=== PATIENT | female | born 1955 | race Caucasian/White ===

== ENCOUNTER 2019-08-20 23:08 | Inpatient (IN) | payer MEDICARE ==
[~2019-08-20] VITALS: Ht 162.6 cm; Wt 109.5 kg
[2019-08-20] MEDS ORDERED: SODIUM CHLORIDE 0.9% 1,000 ML IV ONE (23:23)
[2019-08-20] MEDS ORDERED: KETOROLAC TROMETH 30 MG/ML 1ML VIAL IV ONE (23:30)
[2019-08-20] MEDS ORDERED: VANCOMYCIN 1GM/250ML 250 ML IV ONE (23:30)
[2019-08-21] LABS: Basophils # (auto) 0.1 10 ^3/uL (0-0.2); Eosinophils # (auto) 0.3 10 ^3/uL (0-0.8); Eosinophils % (auto) 3.7 % (0.0-7.0); Hematocrit 41.7 % (36.0-46.0); Hemoglobin 13.7 g/dL (12.2-16.2); Lymphocytes # (auto) 1.7 10 ^3/uL (0.4-5.4); Lymphocytes % (auto) 18.4 % (10.0-50.0); Mean Corpuscular Hemoglobin 27.1 pg (28.0-32.0); Mean Corpuscular Hgb Conc. 32.8 g/dL (32.0-36.0); Mean Corpuscular Volume 82.7 fL (80.0-100.0); Monocytes # (auto) 0.9 10 ^3/uL (0-1.3); Neutrophils # (auto) 6.1 10 ^3/uL (1.6-8.6); Neutrophils % (auto) 66.9 % (37.0-80.0); Nucleated Red Blood Cells % 0.1 %; Platelet Count (auto) 366 10^3/uL (140-450); Red Blood Cells 5.04 10^6/uL (4.0-5.20); Red Cell Distribution Width 15.8 % (11.8-14.3); White Blood Cell 9.1 10^3/uL (4.4-10.8)
[2019-08-21 00:16] LABS: INR 0.99 (0.9-1.15); Partial Thromboplastin Time 28.5 sec (23.64-32.05)
[2019-08-21 00:22] LABS: Calcium 8.7 mg/dL (8.5-10.1); Potassium 3.5 mmol/L (3.5-5.1)
[2019-08-21 00:25] LABS: Bilirubin, Total 0.3 mg/dL (0.2-1.0); Total Protein 7.9 g/dL (6.4-8.2)
[2019-08-21 01:06] LABS: CRP High Sensitivity 7.04 mg/dL (< 0.3)
[2019-08-21 01:35] LABS: Urine Bacteria NONE SEEN /hpf (None Seen); Urine Blood Negative /uL (Negative); Urine WBC <1 /hpf (0 - 5)
[2019-08-21] MEDS ORDERED: hydrALAZINE HCL 20 MG/ML VL IV ONE (01:45)
[2019-08-21] MEDS ORDERED: dilTIAZem HCL 60 MG TAB PO ONE (06:30)
[2019-08-21] MEDS ORDERED: ENALAPRILAT 1.25 MG/ML-1ML VIAL IV ONE (06:45)
[2019-08-21] MEDS ORDERED: ONDANSETRON HCL 4 MG/2 ML VIAL IV PRN (06:45)
[2019-08-21] MEDS ORDERED: TEMAZEPAM 15 MG CAP PO PRN (06:45)
[2019-08-21] MEDS ORDERED: HYDROcodone-ACET 5/325MG TAB ONE (07:27)
[2019-08-21] MEDS: HYDROcodone-ACET 5/325MG TAB PO PRN (07:40)
--- NOTE | 2019-08-21 09:12 | NUR ---
MED/SURG admit from ER [facility] admitted to MED/SURG unit no SBAR received. Patient oriented to Ashley Guerrero RN primary RN, unit, room, bed, and unit policies regarding patient care and visiting hours. Patient placed on bedside oxygen, weighed by bedscale and encouraged to call if they need something. All questions and concerns addressed, patient verbalized understanding.
[2019-08-21] MEDS: FAMOTIDINE 20 MG TAB PO SCH ×2 (09:43→21:39)
[2019-08-21] MEDS: ENOXAPARIN SOD 40 MG/0.4 ML SYRINGE SC SCH (09:44)
[2019-08-21] MEDS: METOPROLOL TARTRATE 25 MG TAB PO SCH ×2 (09:44→21:39)
[2019-08-21] MEDS: cefTRIAXone 1GM/50ML D5W 50 ML IV SCH (09:45)
[2019-08-21 10:05] VITALS: BP 134/55
[2019-08-21 10:58] VITALS: BP 134/55
[2019-08-21] MEDS ORDERED: PNEUMOCOCCAL VACC POLYS 25 MCG/0.5 ML VIAL IM ONE (11:30)
--- NOTE | 2019-08-21 12:20 | NUR ---
WOUND CARE NOTE: Wound care in to see patient per wound care request regarding "bilateral lower extremity wounds" that are noted present on admission. Bedside nurse took photograph of patient's wounds upon admission for reference. Patient is 64 years old female with admitting diagnosis of Lower Extremity Cellulitis. Patient is resting in bed in Rm. 294B. Patient is awake, alert and oriented. She's in no stated pain at this time however reported that her bilateral lower leg are painful to touch. Patient is self turning and repositioning. Her current Kameron score is 14 . Noted patient's bilateral lower leg has edema and erythema with multi open weeping blisters more prominently to calf area. Patient reported that she has had the BLE problem since 2018, "start as blisters, will spread and cleared out". Cleansed patient's BLE wounds with wound cleanser,patted dry with gauze,applied Thera Honey gauze to open blisters, covered with Opti lock dressing, and secured with stockinette. Patient tolerated examination well and denies any other wound. RECOMMENDATION: Nursing to continue with EOD/PRN dressing change to BLE wounds per MD order, dietary consult for wounds, redistribute pressure points with wedges/pillows, elevate edematous extremity on pillows, continue monitoring by wound care while patient is hospitalized. Addendum: 08/21/19 at 1602 by Lashawn Webb RN Amended: Links added.
[2019-08-21 13:00] VITALS: BP_SYST 123; BP_SYST 150; BP_DIAS 78; BP_DIAS 82
[2019-08-21] MEDS: CLINDAMYCIN 600MG IV 50 ML IV SCH ×2 (15:02→21:37)
--- NOTE | 2019-08-21 15:06 | NUR ---
Discharge instructions given as ordered. Encourage to follow up with PMD as instructed. All questions and concerns addressed. Patient verbalized understanding. Medication reconciliation form completed and copy given to patient. IV removed with catheter intact, pressure dressing applied. Telemetry unit returned to ICU. Patient ambulated to [facility] with all personal belongings, accompanied by staff. No distress noted at time of departure. Addendum: 08/21/19 at 1507 by Ashley Guerrero RN RN wrong patient
--- NOTE | 2019-08-21 15:49 | NUR ---
PAGED DR. SPARROW FOR PATIENT'S BLOOD PRESSURE OF 171/78 mmHg. AWAITING CALL BACK
[2019-08-21] MEDS ORDERED: METOPROLOL TARTRATE 1MG/1ML-5ML VIAL IV PRN (16:00)
[2019-08-21] MEDS ORDERED: FUROSEMIDE 40 MG/4 ML VIAL IV ONE (16:00)
--- NOTE | 2019-08-21 16:02 | NUR ---
MD BARBOSA CALLED BACK. INFORMED MD OF PATIENT'S BLOOD PRESSURE AND HEART RATE. MD IS AWARE AND WILL PUT IN ORDERS FOR LASIX, HYDRALAZINE AND METOPROLOL. WILL FOLLOW THROUGH WITH ORDERS.
[2019-08-21 16:40] VITALS: BP 171/78
[2019-08-21] MEDS: ACETAMINOPHEN 325 MG TAB PO PRN (17:10)
--- NOTE | 2019-08-21 17:16 | NUR ---
REASSESSED PATIENT'S BLOOD PRESSURE IT IS 152/79 mmHg AND HEART RATE IS 84 BPM. WILL ADMINISTER LOPRESSOR ORDERED.
--- NOTE | 2019-08-21 19:15 | NUR ---
CLOSING SHIFT NOTE ENDORSED CARE TO GROUP WORK PROGRAM AIDE RN CATRACHITO. PATIENT HAS NO S/S OF DISTRESS/SOB OR PAIN AT THIS TIME.
[2019-08-21 22:00] VITALS: BP 157/97
[2019-08-22 05:00] VITALS: BP_SYST 127; BP_SYST 189; BP_DIAS 77; BP_DIAS 94
[2019-08-22] MEDS: CLINDAMYCIN 600MG IV 50 ML IV SCH ×3 (05:48→22:31)
[2019-08-22] MEDS: hydrALAZINE HCL 20 MG/ML VL IV PRN ×2 (05:49→14:14)
[2019-08-22 06:25] LABS: Basophils # (auto) 0.1 10 ^3/uL (0-0.2); Basophils % (auto) 0.5 % (0.0-2.0); Eosinophils # (auto) 0.2 10 ^3/uL (0-0.8); Eosinophils % (auto) 2.1 % (0.0-7.0); Hematocrit 39.9 % (36.0-46.0); Hemoglobin 13.2 g/dL (12.2-16.2); Lymphocytes # (auto) 1.5 10 ^3/uL (0.4-5.4); Lymphocytes % (auto) 13.5 % (10.0-50.0); Mean Corpuscular Hemoglobin 27.6 pg (28.0-32.0); Mean Corpuscular Hgb Conc. 33.1 g/dL (32.0-36.0); Mean Corpuscular Volume 83.4 fL (80.0-100.0); Monocytes # (auto) 1.3 10 ^3/uL (0-1.3); Monocytes % (auto) 11.9 % (0.0-12.0); Neutrophils # (auto) 7.9 10 ^3/uL (1.6-8.6); Nucleated Red Blood Cells % 0.2 %; Platelet Count (auto) 346 10^3/uL (140-450); Red Blood Cells 4.79 10^6/uL (4.0-5.20); Red Cell Distribution Width 15.6 % (11.8-14.3); White Blood Cell 10.9 10^3/uL (4.4-10.8)
[2019-08-22 06:56] LABS: Potassium 3.3 mmol/L (3.5-5.1)
[2019-08-22 07:14] LABS: BUN/Creatinine Ratio 16.8; Calcium 8.5 mg/dL (8.5-10.1)
[2019-08-22] MEDS: ACETAMINOPHEN 325 MG TAB PO PRN ×2 (07:24→14:36)
--- NOTE | 2019-08-22 07:30 | NUR ---
OPENING NOTE Assumed care of patient at 0700. Respiratory sounds clear, equal bilaterally and unlabored. Patient verbalized a mild pain and verbalized that this is a tolerable pain level for her. Updated patient on POC. Assisted patient with ADLs. Bed locked in lowest position, side rails up x 2, HOB elevated at least 30 degrees and call light is within reach.
[2019-08-22 09:00] VITALS: BP 194/108
--- NOTE | 2019-08-22 09:27 | NUR ---
PATIENT STATES SHE IS HAVING 7/10 CHEST TIGHTNESS THAT IS NON RADIATING. PATIENT IS DIAPHORETIC AT THIS TIME. BLOOD PRESSURE IS 189/78 mmHg HEART RATE IS 85 BPM, AND SPO2 IS 95% ON 1L NC. EKG DONE.
[2019-08-22] MEDS: FAMOTIDINE 20 MG TAB PO SCH ×2 (09:28→22:32)
[2019-08-22] MEDS: cefTRIAXone 1GM/50ML D5W 50 ML IV SCH (09:28)
[2019-08-22] MEDS: METOPROLOL TARTRATE 25 MG TAB PO SCH ×2 (09:29→22:31)
[2019-08-22] MEDS: ENOXAPARIN SOD 40 MG/0.4 ML SYRINGE SC SCH (09:29)
--- NOTE | 2019-08-22 09:35 | NUR ---
SHOWED EKG TO DR. TRACY AND INFORMED HIM OF PATIENT'S CHEST TIGHTNESS AND SYMPTOMS. PER MD, SHOW LEARNING SUPPORT SPECIALIST MELÉNDEZ EKG STRIP AND PUT IN ORDERS FOR CARDIOLOGY CONSULT. WILL FOLLOW THROUGH WITH ORDERS.
--- NOTE | 2019-08-22 09:40 | NUR ---
EKG READ BY MIRANDA MELÉNDEZ. PER TAX FORM PREPARER, EKG IS NORMAL, SHE WILL SEE PATIENT IN A LITTLE BIT. NO NEW ORDERS GIVEN.
--- NOTE | 2019-08-22 09:40 | NUR ---
TAIL EDGER MEDHAT AT BEDSIDE UPDATED TAIL EDGER ON PATIENT'S STATUS INCLUDING ONE EPISODE OF CHEST TIGHTNESS AND ELEVATED BP, TAIL EDGER IS AWARE. TAIL EDGER WILL PUT IN NEW ORDERS FOR ECHO AND STRESS TEST. WILL FOLLOW THROUGH WITH ORDERS.
[2019-08-22] MEDS ORDERED: POTASSIUM CHL 20 Meq TABLET PO ONE (10:00)
--- NOTE | 2019-08-22 10:48 | NUR ---
Assessment Gummed Tape Press Operator spoke with pt per initial consult. Pt is a 64 yr old female admitted for lower extremity cellulitis. She has a hx of cad, htn. Pt was a/a/ox4, receptive to ss visit. Pt states she was independent with adl's prior to admission but admits she needs some help at home. She does not have dme. Pt's son Jose, Jose's spouse, and pt's 2 adult grand daughters live in [place] and are available to assist pt at home as needed. They sometimes stay with pt. Pt's spouse Rich is her emergency contact but he is working halfway in [place]. Pt does not have an ahcd, she declined ahcd info at this time. Pt's pcp is Dr. Givens. Plan is for pt to dc home with home health for wound care and PT. to continue to monitor pt for dc needs. Addendum: 08/22/19 at 1053 by JASON CHATTERJEE Amended: Links added.
[2019-08-22] MEDS ORDERED: ADENOSINE 93 MG in GIVE UN-DILUTED 0 ML IV STA (11:25)
--- NOTE | 2019-08-22 11:45 | NUR ---
MD GAINES AT BEDSIDE. UPDATED MD ON PATIENT'S STATUS INCLUDING CHEST TIGHTNESS IN THE MORNING, MD IS AWARE. PER MD, FOLLOW POC PROVIDED BY CARDIOLOGY. WILL FOLLOW THROUGH WITH ORDERS.
[2019-08-22] MEDS: LISINOPRIL 20 MG TAB PO SCH (12:07)
[2019-08-22 13:00] VITALS: BP 179/73
--- NOTE | 2019-08-22 13:01 | NUR ---
PATIENT TAKEN DOWN FOR STRESS TEST
--- NOTE | 2019-08-22 13:40 | NUR ---
Consult Consider adding MVI and Vitamin C 500 mg BID Est energy needs 2481-1575 kcal (14-18 kcal/kg BW 110.3kg) est protein needs 55-82g (1-1.5g/kg BW 54.5kg) Will reassess prn. Addendum: 08/22/19 at [address] Amended: Links added.
--- NOTE | 2019-08-22 13:52 | NUR ---
PATIENT RETURNED TO ROOM FROM STRESS TEST
[2019-08-22] MEDS ORDERED: ASPirin 81 mg TAB PO ONE (14:45)
[2019-08-22] MEDS ORDERED: CLOPIDOGREL BISULFATE 75 MG TAB PO ONE (14:45)
[2019-08-22] MEDS ORDERED: cloNIDine HCL 0.1 MG TAB PO PRN (14:45)
[2019-08-22 17:00] VITALS: BP 159/86
[2019-08-22] MEDS: FUROSEMIDE 20 MG/2 ML VIAL IV SCH (17:18)
--- NOTE | 2019-08-22 19:00 | NUR ---
CLOSING SHIFT NOTE ENDORSED CARE TO LIFE SKILLS COORDINATOR VOLUNTEER RN CATRACHITO. PATIENT HAS NO S/S OF DISTRESS/SOB OR PAIN AT THIS TIME.
[2019-08-22] MEDS: HYDROcodone-ACET 5/325MG TAB PO PRN (20:04)
[2019-08-22 22:00] VITALS: BP 150/79
[2019-08-23 05:00] VITALS: BP 163/83
[2019-08-23 05:25] LABS: Basophils # (auto) 0.1 10 ^3/uL (0-0.2); Basophils % (auto) 0.7 % (0.0-2.0); Eosinophils # (auto) 0.3 10 ^3/uL (0-0.8); Hematocrit 37.6 % (36.0-46.0); Hemoglobin 12.3 g/dL (12.2-16.2); Lymphocytes # (auto) 1.2 10 ^3/uL (0.4-5.4); Lymphocytes % (auto) 14.6 % (10.0-50.0); Mean Corpuscular Hgb Conc. 32.7 g/dL (32.0-36.0); Mean Corpuscular Volume 82.5 fL (80.0-100.0); Monocytes # (auto) 0.8 10 ^3/uL (0-1.3); Neutrophils # (auto) 6.1 10 ^3/uL (1.6-8.6); Neutrophils % (auto) 71.7 % (37.0-80.0); Nucleated Red Blood Cells % 0.1 %; Platelet Count (auto) 352 10^3/uL (140-450); Red Blood Cells 4.56 10^6/uL (4.0-5.20); White Blood Cell 8.5 10^3/uL (4.4-10.8)
[2019-08-23 05:50] LABS: Calcium 8.5 mg/dL (8.5-10.1); Potassium 3.7 mmol/L (3.5-5.1)
[2019-08-23 05:52] LABS: BUN/Creatinine Ratio 19.1
[2019-08-23] MEDS: CLINDAMYCIN 600MG IV 50 ML IV SCH ×3 (06:15→23:18)
[2019-08-23] MEDS: FUROSEMIDE 20 MG/2 ML VIAL IV SCH ×2 (06:16→18:32)
[2019-08-23] MEDS: hydrALAZINE HCL 20 MG/ML VL IV PRN (06:16)
[2019-08-23 06:23] LABS: INR 1.05 (0.9-1.15); Partial Thromboplastin Time 29.8 sec (23.64-32.05)
[2019-08-23] MEDS: ENOXAPARIN SOD 40 MG/0.4 ML SYRINGE SC SCH (07:44)
[2019-08-23 09:00] VITALS: BP 160/79
--- NOTE | 2019-08-23 09:00 | NUR ---
Attempted to call pt's son Joe at [phone] to inform him that pt will be taken to slab conditioner supervisor as per his request, no answer and unable to leave a message due to his mail box full.
--- NOTE | 2019-08-23 09:15 | NUR ---
Pt taken to calibration laboratory technician.
[2019-08-23] MEDS ORDERED: IODIXANOL 320MG/ML 100ML BTL IV ONE (09:48)
[2019-08-23] MEDS ORDERED: LIDOCAINE 2%HCL (LOCAL ANESTH.) INJ 20ML MDV ONE (09:48)
[2019-08-23] MEDS ORDERED: VERAPAMIL 2.5MG/ML INJ 2ML VIAL IV ONE (09:50)
[2019-08-23] MEDS ORDERED: ANGIOMAX 250 MG VIAL IV ONE (09:50)
[2019-08-23] MEDS ORDERED: fentaNYL CITRATE 100 MCG/2 ML VL ONE (09:51)
[2019-08-23] MEDS ORDERED: SODIUM CHL 0.9% 50 ML ONE (09:51)
[2019-08-23] MEDS ORDERED: MIDAZOLAM HCL 1MG/1ML-2 ML VIAL ONE (09:51)
[2019-08-23] MEDS: FAMOTIDINE 20 MG TAB PO SCH ×2 (10:00→23:18)
[2019-08-23] MEDS: METOPROLOL TARTRATE 25 MG TAB PO SCH ×2 (10:00→23:37)
[2019-08-23] MEDS: CLOPIDOGREL BISULFATE 75 MG TAB PO SCH (10:00)
[2019-08-23] MEDS: ASPirin 81 mg TAB PO SCH (10:00)
[2019-08-23] MEDS: LISINOPRIL 20 MG TAB PO SCH (10:00)
[2019-08-23] MEDS ORDERED: HEPARIN SODIUM (PORCINE) 5000 UNITS/ML 1ML VIAL ONE (10:06)
[2019-08-23] MEDS ORDERED: hydrALAZINE HCL 20 MG/ML VL ONE (10:37)
[2019-08-23] MEDS ORDERED: ASPirin 81 mg TAB ONE (10:46)
[2019-08-23] MEDS ORDERED: CLOPIDOGREL BISULFATE 75 MG TAB ONE (10:46)
[2019-08-23] MEDS ORDERED: cloNIDine HCL 0.1 MG TAB PO ONE (11:15)
[2019-08-23] MEDS ORDERED: hydrALAZINE HCL 20 MG/ML VL IV ONE (11:15)
--- NOTE | 2019-08-23 11:45 | NUR ---
Pt back from labels molder, rt wrist band, no bleeding noticed to rt wrist, cap refill < 3 sec, pt sleeping, will start removing air from TR band at 1155.
--- NOTE | 2019-08-23 11:55 | NUR ---
Removed 2 ml of air from rt wrist band, no bleeding noticed, will continue to monitor pt.
--- NOTE | 2019-08-23 12:00 | NUR ---
Attempted to call pt's son Joe at [phone] to inform him that pt is back from cath lab nurse. No answer and unable to leave a message due to his mail box full.
--- NOTE | 2019-08-23 12:25 | NUR ---
Removed 2 ml of air from rt wrist band, no bleeding noticed, will continue to monitor pt.
[2019-08-23] MEDS: cefTRIAXone 1GM/50ML D5W 50 ML IV SCH (12:30)
--- NOTE | 2019-08-23 12:55 | NUR ---
Removed 2 ml air from the vascular band to rt wrist, noticed bleeding, insert the 2 ml of air back in, will monitor pt for 30 min.
[2019-08-23 13:00] VITALS: BP 139/80
--- NOTE | 2019-08-23 13:25 | NUR ---
Removed 2 ml of air from rt vascular band, no bleeding noticed, will continue to monitor pt.
--- NOTE | 2019-08-23 13:55 | NUR ---
Removed 2 ml of air from vascular band, no bleeding noticed, will continue to monitor pt.
--- NOTE | 2019-08-23 14:25 | NUR ---
Removed the last 2 ml of air from vascular band, will monitor pt for bleeding.
--- NOTE | 2019-08-23 14:55 | NUR ---
Removed vascular band, no bleeding noticed, applied a sterile gauze and covered with clear opsite dressing. Will continue to monitor pt.
[2019-08-23 17:00] VITALS: BP 156/81
[2019-08-23] MEDS: HYDROcodone-ACET 5/325MG TAB PO PRN (18:33)
--- NOTE | 2019-08-23 19:10 | NUR ---
Called and spoke to Dr. Zarco / hospitalist to request an antiacid medication as per pt's request, pt requested medication to help her burp.
--- NOTE | 2019-08-23 19:40 | NUR ---
Opening Shift Note Assumed care of patient, awake and alert, oriented x 4, follows direction. On room air with even and unlabored respirations. No S/S of distress/SOB. Patient turns independently in bed and uses BSC. Bed in lowest locked position with side rails up x 2 and call light within reach. Instructed on POC and to call for assist PRN, will continue to monitor for changes Q1hr and PRN.
[2019-08-23] MEDS ORDERED: FAMOTIDINE 20 MG TAB PO ONE (19:45)
[2019-08-24 06:20] VITALS: BP 181/80
--- NOTE | 2019-08-24 06:50 | NUR ---
IV insertion IV access obtained, via clean sterile technique by inserting 22 gauge catheter at right hand after 1 attempt(s). IV secured properly. No trauma to site. Patient tolerated well. NOTE: IV to right forearm puffy.
[2019-08-24] MEDS: CLINDAMYCIN 600MG IV 50 ML IV SCH ×3 (07:06→22:00)
[2019-08-24] MEDS: cloNIDine HCL 0.1 MG TAB PO PRN (07:09)
[2019-08-24] MEDS: FUROSEMIDE 20 MG/2 ML VIAL IV SCH ×2 (07:09→17:17)
--- NOTE | 2019-08-24 07:10 | NUR ---
Closing note patient resting in bed with even and unlabored respirations, no s/s of distress. Endorsed care to day shift RN
--- NOTE | 2019-08-24 07:45 | NUR ---
Opening Shift Note Assumed care of patient, awake, alert, and oriented. No S/S of distress/SOB or pain. Bed in lowest/locked position, bed rails up x2, call light within reach. Instructed on POC and to call for assist PRN. Will continue to monitor for changes Q1hr and PRN.
[2019-08-24] MEDS: cefTRIAXone 1GM/50ML D5W 50 ML IV SCH (08:58)
[2019-08-24] MEDS: ASPirin 81 mg TAB PO SCH (08:59)
[2019-08-24] MEDS: ENOXAPARIN SOD 40 MG/0.4 ML SYRINGE SC SCH (08:59)
[2019-08-24] MEDS: hydrALAZINE HCL 20 MG/ML VL IV PRN (08:59)
[2019-08-24] MEDS: FAMOTIDINE 20 MG TAB PO SCH ×2 (08:59→21:32)
[2019-08-24 09:00] VITALS: BP 174/81
[2019-08-24] MEDS: METOPROLOL TARTRATE 25 MG TAB PO SCH ×2 (09:00→21:32)
[2019-08-24] MEDS: CLOPIDOGREL BISULFATE 75 MG TAB PO SCH (09:00)
[2019-08-24] MEDS: LISINOPRIL 20 MG TAB PO SCH (09:01)
--- NOTE | 2019-08-24 10:25 | NUR ---
MD ROUNDS DR Mariel GAINES AT BEDSIDE DISCUSSING POC WITH PATIENT. NO NEW ORDERS RECEIVED. WILL CONTINUE TO MONITOR
[2019-08-24 13:00] VITALS: BP 144/73
[2019-08-24 17:05] VITALS: BP 142/60
[2019-08-24] MEDS: HYDROcodone-ACET 5/325MG TAB PO PRN (18:46)
[2019-08-24 22:00] VITALS: BP 150/69
[2019-08-25 05:00] VITALS: BP 154/73
[2019-08-25] MEDS: ACETAMINOPHEN 325 MG TAB PO PRN (05:49)
[2019-08-25] MEDS: ENOXAPARIN SOD 40 MG/0.4 ML SYRINGE SC SCH (07:42)
[2019-08-25] MEDS: CLOPIDOGREL BISULFATE 75 MG TAB PO SCH (07:43)
[2019-08-25] MEDS: cefTRIAXone 1GM/50ML D5W 50 ML IV SCH (07:43)
[2019-08-25] MEDS: ASPirin 81 mg TAB PO SCH (07:43)
[2019-08-25] MEDS: FAMOTIDINE 20 MG TAB PO SCH (07:43)
[2019-08-25] MEDS: cloNIDine HCL 0.1 MG TAB PO PRN (07:44)
[2019-08-25] MEDS: METOPROLOL TARTRATE 25 MG TAB PO SCH (07:44)
[2019-08-25] MEDS: LISINOPRIL 20 MG TAB PO SCH (07:45)
--- NOTE | 2019-08-25 08:02 | NUR ---
IV insertion IV access obtained, via clean sterile technique by inserting 22 gauge catheter at left hand after 1 attempt. IV secured properly. No trauma to site. Patient tolerated well.
[2019-08-25 09:00] VITALS: BP 173/81
--- NOTE | 2019-08-25 11:10 | NUR ---
MD ROUNDS DR Mariel GAINES AT BEDSIDE DISCUSSING POC WITH PATIENT. PER DR Mariel GAINES PATIENT TO BE D/C HOME TODAY, CONTACT RETANNED LEATHER ROLLER RE: HOME HEALTH FOR WOUND CARE. PER DR Mariel GAINES IF RETANNED LEATHER ROLLER CANNOT SET UP TODAY CONTINUE WITH D/C HOME. WILL CONTINUE TO MONITOR
--- NOTE | 2019-08-25 11:23 | NUR ---
PAGED ROUSTABOUT PUSHER PAGED SS RE: PATIENT HOME HEALTH FOR WOUND CARE. AWAITING RETURN CALL
[2019-08-25 13:00] VITALS: BP_SYST 108; BP_SYST 155; BP_DIAS 63; BP_DIAS 67
[2019-08-25] MEDS: CLINDAMYCIN 600MG IV 50 ML IV SCH (13:25)
--- NOTE | 2019-08-25 14:05 | NUR ---
WOUND CARE WOUND PHOTOS TAKEN PER D/C PROTOCOL. WOUND CARE PERFORMED. PATIENT C/O PAIN 07/23 TO BLE ACHY. WILL MEDICATE PER MD ORDERS
[2019-08-25] MEDS: HYDROcodone-ACET 5/325MG TAB PO PRN (14:15)
--- NOTE | 2019-08-25 15:18 | NUR ---
Discharge instructions given as ordered. Encourage to follow up with PMD as instructed. All questions and concerns addressed. Patient verbalized understanding. IV removed with catheter intact, pressure dressing applied. Telemetry unit returned to ICU. Patient taken to vehicle via wheelchair with all personal belongings, accompanied by staff. No distress noted at time of departure.
--- NOTE | 2019-08-26 17:58 | NUR ---
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 Per Savita patient wants home health Dr Clinton spoke to her about [facility]. Per Savita she sent the order to [facility]. Jesús Heath at [facility] will start on 08/26/2019. Addendum: 08/26/19 at 1800 by Marva VICENTE Amended: Links added.
== END 2019-08-25 15:30 | disposition home health service (06) | DRG 246 ==
LOC: EDBD 23:08 → ER 23:12 → OVERFLOW 23:13 → WEST WING 08-21 09:26 → TELE-WESTW 08-23 01:32
PROVIDERS: ADMIT Nurse Practitioner; ATTEND Family Medicine
PROC: 027034Z Dilation of Coronary Artery, One Artery with Drug-eluting Intraluminal Device, Percutaneous Approach (ICD-10-PCS; principal; 2019-08-23)
PROC: 4A023N7 Measurement of Cardiac Sampling and Pressure, Left Heart, Percutaneous Approach (ICD-10-PCS; 2019-08-23)
PROC: B211YZZ Fluoroscopy of Multiple Coronary Arteries using Other Contrast (ICD-10-PCS; 2019-08-23)
PROC: B215YZZ Fluoroscopy of Left Heart using Other Contrast (ICD-10-PCS; 2019-08-23)
DX: I25.10 Atherosclerotic heart disease of native coronary artery without angina pectoris (principal); I50.21 Acute systolic (congestive) heart failure; L03.115 Cellulitis of right lower limb; L03.116 Cellulitis of left lower limb; Z68.41 Body mass index [BMI] 40.0-44.9, adult; I16.1 Hypertensive emergency; E66.01 Morbid (severe) obesity due to excess calories; F17.200 Nicotine dependence, unspecified, uncomplicated; Z91.14 Patient's other noncompliance with medication regimen; I11.0 Hypertensive heart disease with heart failure
CPT/HCPCS: 36415; 71045; 78452; 80048; 80053; 80061; 81001; 82533; 82565; 83605; 83735; 83880; 84443; 84484; 85025; 85610; 85730; 86141; 86850; 86900; 86901; 87040; 92928; 93005; 93017; 93306; 93458; 93970; 93975; 96365; 96375; 99152; 99153; C1874; C1887; G0378; J0153; J0696; J1885; J2250; J3490; Q9967

== ENCOUNTER 2019-11-23 10:58 | Inpatient (IN) | payer MEDICARE ==
[~2019-11-23] VITALS: Ht 162.6 cm; Wt 105.5 kg
[2019-11-23 11:37] LABS: Basophils # (auto) 0.2 10 ^3/uL (0-0.2); Basophils % (auto) 1.2 % (0.0-2.0); Eosinophils # (auto) 0.4 10 ^3/uL (0-0.8); Eosinophils % (auto) 2.5 % (0.0-7.0); Hematocrit 38.5 % (36.0-46.0); Hemoglobin 12.7 g/dL (12.2-16.2); Lymphocytes # (auto) 1.9 10 ^3/uL (0.4-5.4); Lymphocytes % (auto) 12.8 % (10.0-50.0); Mean Corpuscular Hemoglobin 27.5 pg (28.0-32.0); Mean Corpuscular Hgb Conc. 32.9 g/dL (32.0-36.0); Mean Corpuscular Volume 83.4 fL (80.0-100.0); Monocytes # (auto) 1.4 10 ^3/uL (0-1.3); Monocytes % (auto) 9.8 % (0.0-12.0); Neutrophils # (auto) 10.7 10 ^3/uL (1.6-8.6); Neutrophils % (auto) 73.7 % (37.0-80.0); Nucleated Red Blood Cells % 0.1 %; Platelet Count (auto) 366 10^3/uL (140-450); Red Blood Cells 4.62 10^6/uL (4.0-5.20); Red Cell Distribution Width 16.5 % (11.8-14.3); White Blood Cell 14.5 10^3/uL (4.4-10.8)
[2019-11-23 12:03] LABS: Albumin 2.7 g/dL (3.4-5.0); Calcium 8.9 mg/dL (8.5-10.1); Potassium 4.3 mmol/L (3.5-5.1)
[2019-11-23 12:07] LABS: BUN/Creatinine Ratio 27.2; Bilirubin, Total 0.3 mg/dL (0.2-1.0)
[2019-11-23] MEDS ORDERED: MORPHINE SULF INJ 2 MG/ML SYRINGE 1ML ONE (12:26)
[2019-11-23] MEDS ORDERED: ONDANSETRON HCL 4 MG/2 ML VIAL ONE (12:26)
[2019-11-23] MEDS ORDERED: MORPHINE SULF INJ 2 MG/ML SYRINGE 1ML IV ONE (12:30)
[2019-11-23] MEDS ORDERED: ONDANSETRON HCL 4 MG/2 ML VIAL IV ONE (12:30)
[2019-11-23 12:54] LABS: INR 0.99 (0.9-1.15)
[2019-11-23 12:58] LABS: Magnesium 2.6 mg/dL (1.6-2.6)
[2019-11-23] MEDS: SODIUM CHLORIDE 0.9% 1,000 ML IV SCH (14:00)
[2019-11-23] MEDS ORDERED: NITROGLYCERIN 0.4 MG SL TAB SL PRN (14:00)
[2019-11-23] MEDS ORDERED: MORPHINE SULF INJ 2 MG/ML SYRINGE 1ML IV PRN (14:00)
[2019-11-23] MEDS ORDERED: ACETAMINOPHEN 500 MG TAB PO PRN (14:00)
[2019-11-23] MEDS: CLINDAMYCIN 300MG IV 50 ML IV SCH ×2 (14:00→21:27)
[2019-11-23] MEDS: HYDROmorphone HCL 2 MG/ML VL IV PRN ×2 (16:56→21:28)
[2019-11-23 17:00] VITALS: BP 162/83
[2019-11-23 17:25] VITALS: BP 162/83
[2019-11-23 20:00] VITALS: BP 149/66
[2019-11-23] MEDS: HYDROcodone-ACET 5/325MG TAB PO PRN (20:22)
[2019-11-23] MEDS: ATORVASTATIN 20 MG TAB PO SCH (21:27)
[2019-11-23] MEDS: ENOXAPARIN SOD 100 MG/1 ML SYRINGE SC SCH (21:27)
[2019-11-23 22:00] VITALS: BP 149/66
[2019-11-23] MEDS ORDERED: ENOXAPARIN SOD 120 MG/0.8 ML SYRINGE SC SCH (22:00)
[2019-11-24] MEDS ORDERED: ASPI-543 PO (01:36)
[2019-11-24] MEDS ORDERED: MET25T PO (01:36)
[2019-11-24] MEDS ORDERED: CLOP75TA41 PO (01:36)
[2019-11-24] MEDS ORDERED: ATOR10TA52 PO (01:36)
[2019-11-24] MEDS ORDERED: CLON0.1T14 PO (01:36)
[2019-11-24] MEDS ORDERED: FURO40TA4 PO (01:36)
[2019-11-24] MEDS ORDERED: POTA10TA51 PO (01:36)
[2019-11-24] MEDS ORDERED: LISI40TA11 PO (01:36)
[2019-11-24] MEDS ORDERED: CEPH500C PO (01:36)
[2019-11-24] MEDS: HYDROmorphone HCL 2 MG/ML VL IV PRN ×3 (02:20→21:54)
[2019-11-24] MEDS: SODIUM CHLORIDE 0.9% 1,000 ML IV SCH ×2 (03:20→17:07)
[2019-11-24] MEDS: HYDROcodone-ACET 5/325MG TAB PO PRN (04:53)
[2019-11-24 05:00] VITALS: BP 131/50
[2019-11-24] MEDS: CLINDAMYCIN 300MG IV 50 ML IV SCH ×3 (05:18→21:53)
[2019-11-24 06:06] LABS: Basophils # (auto) 0.1 10 ^3/uL (0-0.2); Basophils % (auto) 0.4 % (0.0-2.0); Eosinophils # (auto) 0.1 10 ^3/uL (0-0.8); Eosinophils % (auto) 0.6 % (0.0-7.0); Hematocrit 33.6 % (36.0-46.0); Hemoglobin 11.1 g/dL (12.2-16.2); Lymphocytes # (auto) 1.5 10 ^3/uL (0.4-5.4); Mean Corpuscular Hemoglobin 27.4 pg (28.0-32.0); Mean Corpuscular Hgb Conc. 33.1 g/dL (32.0-36.0); Mean Corpuscular Volume 82.8 fL (80.0-100.0); Monocytes # (auto) 1.7 10 ^3/uL (0-1.3); Monocytes % (auto) 11.5 % (0.0-12.0); Neutrophils # (auto) 11.6 10 ^3/uL (1.6-8.6); Neutrophils % (auto) 77.5 % (37.0-80.0); Platelet Count (auto) 362 10^3/uL (140-450); Red Blood Cells 4.06 10^6/uL (4.0-5.20); Red Cell Distribution Width 16.9 % (11.8-14.3)
[2019-11-24 06:26] LABS: BUN/Creatinine Ratio 29.3; Calcium 8.8 mg/dL (8.5-10.1)
[2019-11-24 09:00] VITALS: BP 115/66
[2019-11-24] MEDS: cefTRIAXone 1GM/50ML D5W 50 ML IV SCH (09:30)
[2019-11-24] MEDS: FLORASTOR (S. BOULARDII) 250 MG CAP PO SCH (09:30)
[2019-11-24] MEDS: amLODIPine BESYLATE 5 MG TAB PO SCH (09:30)
[2019-11-24] MEDS: ASPirin 81 mg TAB PO SCH (09:30)
[2019-11-24] MEDS: CLOPIDOGREL BISULFATE 75 MG TAB PO SCH (09:31)
[2019-11-24] MEDS: ENOXAPARIN SOD 100 MG/1 ML SYRINGE SC SCH ×2 (09:31→21:53)
[2019-11-24] MEDS: PANTOPRAZOLE 40 MG TAB PO SCH (09:31)
[2019-11-24] MEDS ORDERED: LORazepam 0.5 MG TAB PO PRN (10:45)
[2019-11-24 13:00] VITALS: BP 126/71
[2019-11-24] MEDS: Ensure HIGH Protein Chocolate 8oz Bottle PO SCH ×2 (13:35→17:56)
[2019-11-24] MEDS ORDERED: diphenhdrAMINE HCL 25 MG CAP PO ONE (15:45)
[2019-11-24 17:00] VITALS: BP 136/65
[2019-11-24] MEDS: diphenhdrAMINE HCL 25 MG CAP PO SCH ×2 (17:55→21:53)
[2019-11-24 20:00] VITALS: BP 131/67
[2019-11-24] MEDS: ATORVASTATIN 20 MG TAB PO SCH (21:53)
[2019-11-24 22:00] VITALS: BP 131/67
[2019-11-25] MEDS: HYDROmorphone HCL 2 MG/ML VL IV PRN ×4 (03:35→21:08)
[2019-11-25] MEDS: HYDROcodone-ACET 5/325MG TAB PO PRN ×3 (05:30→23:15)
[2019-11-25 06:00] VITALS: BP 110/66
[2019-11-25 06:12] LABS: Basophils # (auto) 0.1 10 ^3/uL (0-0.2); Basophils % (auto) 0.6 % (0.0-2.0); Eosinophils # (auto) 0.2 10 ^3/uL (0-0.8); Eosinophils % (auto) 1.7 % (0.0-7.0); Hematocrit 33.2 % (36.0-46.0); Hemoglobin 11.3 g/dL (12.2-16.2); Lymphocytes # (auto) 1.8 10 ^3/uL (0.4-5.4); Lymphocytes % (auto) 14.2 % (10.0-50.0); Mean Corpuscular Volume 82.3 fL (80.0-100.0); Monocytes # (auto) 1.7 10 ^3/uL (0-1.3); Monocytes % (auto) 13.2 % (0.0-12.0); Neutrophils % (auto) 70.3 % (37.0-80.0); Nucleated Red Blood Cells % 0.1 %; Platelet Count (auto) 397 10^3/uL (140-450); Red Blood Cells 4.04 10^6/uL (4.0-5.20); Red Cell Distribution Width 16.9 % (11.8-14.3); White Blood Cell 12.8 10^3/uL (4.4-10.8)
[2019-11-25 06:33] LABS: Potassium 4.2 mmol/L (3.5-5.1)
[2019-11-25] MEDS: SODIUM CHLORIDE 0.9% 1,000 ML IV SCH ×2 (06:48→17:41)
[2019-11-25] MEDS: CLINDAMYCIN 300MG IV 50 ML IV SCH ×3 (06:49→21:45)
[2019-11-25] MEDS: diphenhdrAMINE HCL 25 MG CAP PO SCH ×4 (06:49→21:45)
[2019-11-25 07:01] LABS: BUN/Creatinine Ratio 28.7
[2019-11-25] MEDS: cefTRIAXone 1GM/50ML D5W 50 ML IV SCH (08:54)
[2019-11-25] MEDS: amLODIPine BESYLATE 5 MG TAB PO SCH (08:55)
[2019-11-25] MEDS: FLORASTOR (S. BOULARDII) 250 MG CAP PO SCH (08:55)
[2019-11-25] MEDS: ENOXAPARIN SOD 100 MG/1 ML SYRINGE SC SCH ×2 (08:55→21:46)
[2019-11-25] MEDS: CLOPIDOGREL BISULFATE 75 MG TAB PO SCH (08:55)
[2019-11-25] MEDS: ASPirin 81 mg TAB PO SCH (08:55)
[2019-11-25] MEDS: PANTOPRAZOLE 40 MG TAB PO SCH (08:55)
[2019-11-25] MEDS: Ensure HIGH Protein Chocolate 8oz Bottle PO SCH ×3 (08:56→17:41)
[2019-11-25 09:00] VITALS: BP 131/62
[2019-11-25 13:00] VITALS: BP 143/92
[2019-11-25 16:52] VITALS: BP 150/75
[2019-11-25] MEDS: ATORVASTATIN 20 MG TAB PO SCH (21:45)
[2019-11-25 22:00] VITALS: BP 136/62
[2019-11-26 05:00] VITALS: BP 162/77
[2019-11-26] MEDS: HYDROmorphone HCL 2 MG/ML VL IV PRN ×3 (05:31→22:18)
[2019-11-26] MEDS: LABETALOL HCL 5 MG/ML 4ML SYRINGE IV PRN (05:32)
[2019-11-26] MEDS: CLINDAMYCIN 300MG IV 50 ML IV SCH ×3 (06:22→21:19)
[2019-11-26] MEDS: diphenhdrAMINE HCL 25 MG CAP PO SCH ×4 (06:22→21:31)
[2019-11-26 07:12] LABS: Calcium 8.8 mg/dL (8.5-10.1); Potassium 3.9 mmol/L (3.5-5.1)
[2019-11-26 07:34] LABS: Basophils # (auto) 0 10 ^3/uL (0-0.2); Basophils % (auto) 0.5 % (0.0-2.0); Eosinophils # (auto) 0.2 10 ^3/uL (0-0.8); Eosinophils % (auto) 3.1 % (0.0-7.0); Hematocrit 32.9 % (36.0-46.0); Hemoglobin 11.2 g/dL (12.2-16.2); Lymphocytes # (auto) 1.2 10 ^3/uL (0.4-5.4); Lymphocytes % (auto) 15.4 % (10.0-50.0); Mean Corpuscular Hemoglobin 27.9 pg (28.0-32.0); Mean Corpuscular Hgb Conc. 33.9 g/dL (32.0-36.0); Mean Corpuscular Volume 82.2 fL (80.0-100.0); Monocytes # (auto) 0.9 10 ^3/uL (0-1.3); Monocytes % (auto) 11.3 % (0.0-12.0); Neutrophils # (auto) 5.3 10 ^3/uL (1.6-8.6); Neutrophils % (auto) 69.7 % (37.0-80.0); Platelet Count (auto) 401 10^3/uL (140-450); Red Blood Cells 4.01 10^6/uL (4.0-5.20); Red Cell Distribution Width 16.8 % (11.8-14.3); White Blood Cell 7.7 10^3/uL (4.4-10.8)
[2019-11-26 08:52] VITALS: BP 137/74
[2019-11-26] MEDS: Ensure HIGH Protein Chocolate 8oz Bottle PO SCH ×3 (09:47→16:53)
[2019-11-26] MEDS: CLOPIDOGREL BISULFATE 75 MG TAB PO SCH (09:48)
[2019-11-26] MEDS: FLORASTOR (S. BOULARDII) 250 MG CAP PO SCH (09:48)
[2019-11-26] MEDS: ENOXAPARIN SOD 100 MG/1 ML SYRINGE SC SCH ×2 (09:48→21:31)
[2019-11-26] MEDS: ASPirin 81 mg TAB PO SCH (09:48)
[2019-11-26] MEDS: amLODIPine BESYLATE 5 MG TAB PO SCH (09:49)
[2019-11-26] MEDS: PANTOPRAZOLE 40 MG TAB PO SCH (09:49)
[2019-11-26] MEDS: HYDROcodone-ACET 5/325MG TAB PO PRN ×2 (09:56→16:53)
[2019-11-26] MEDS: cefTRIAXone 1GM/50ML D5W 50 ML IV SCH (11:56)
[2019-11-26] MEDS: SODIUM CHLORIDE 0.9% 1,000 ML IV SCH ×2 (11:56→22:00)
[2019-11-26 12:52] VITALS: BP 137/79
[2019-11-26 16:36] VITALS: BP 130/72
[2019-11-26] MEDS: ATORVASTATIN 20 MG TAB PO SCH (21:31)
[2019-11-26 22:00] VITALS: BP 163/86
[2019-11-27] MEDS: HYDROcodone-ACET 5/325MG TAB PO PRN ×3 (04:02→21:52)
[2019-11-27 04:59] VITALS: BP 150/75
[2019-11-27] MEDS: CLINDAMYCIN 300MG IV 50 ML IV SCH ×3 (05:31→21:53)
[2019-11-27] MEDS: diphenhdrAMINE HCL 25 MG CAP PO SCH ×4 (05:31→21:53)
[2019-11-27 05:41] LABS: Basophils # (auto) 0 10 ^3/uL (0-0.2); Basophils % (auto) 0.5 % (0.0-2.0); Eosinophils # (auto) 0.3 10 ^3/uL (0-0.8); Eosinophils % (auto) 4.3 % (0.0-7.0); Hematocrit 33.3 % (36.0-46.0); Hemoglobin 11.1 g/dL (12.2-16.2); Lymphocytes # (auto) 1.3 10 ^3/uL (0.4-5.4); Lymphocytes % (auto) 18.4 % (10.0-50.0); Mean Corpuscular Hemoglobin 27.5 pg (28.0-32.0); Mean Corpuscular Hgb Conc. 33.3 g/dL (32.0-36.0); Mean Corpuscular Volume 82.5 fL (80.0-100.0); Monocytes # (auto) 0.8 10 ^3/uL (0-1.3); Monocytes % (auto) 11.1 % (0.0-12.0); Neutrophils # (auto) 4.6 10 ^3/uL (1.6-8.6); Neutrophils % (auto) 65.7 % (37.0-80.0); Platelet Count (auto) 432 10^3/uL (140-450); Red Blood Cells 4.03 10^6/uL (4.0-5.20); Red Cell Distribution Width 16.4 % (11.8-14.3)
[2019-11-27 05:59] LABS: Calcium 8.6 mg/dL (8.5-10.1); Potassium 4.3 mmol/L (3.5-5.1)
[2019-11-27] MEDS: HYDROmorphone HCL 2 MG/ML VL IV PRN ×4 (07:26→20:26)
[2019-11-27] MEDS: Ensure HIGH Protein Chocolate 8oz Bottle PO SCH ×3 (08:18→18:23)
[2019-11-27 08:19] VITALS: BP 165/80
[2019-11-27] MEDS ORDERED: APIXABAN 5 MG TAB PO SCH (10:00)
[2019-11-27] MEDS: FLORASTOR (S. BOULARDII) 250 MG CAP PO SCH (10:04)
[2019-11-27] MEDS: CLOPIDOGREL BISULFATE 75 MG TAB PO SCH (10:05)
[2019-11-27] MEDS: FUROSEMIDE 40 MG TAB PO SCH (10:05)
[2019-11-27] MEDS: PANTOPRAZOLE 40 MG TAB PO SCH (10:05)
[2019-11-27] MEDS: amLODIPine BESYLATE 5 MG TAB PO SCH (10:05)
[2019-11-27] MEDS: ASPirin 81 mg TAB PO SCH (10:05)
[2019-11-27] MEDS: POTASSIUM CHL 10 Meq TABLET PO SCH (10:06)
[2019-11-27] MEDS: SODIUM CHLORIDE 0.9% 1,000 ML IV SCH (10:49)
[2019-11-27] MEDS: PIPERACILLIN-TAZOB 2.25GM 50 ML IV SCH ×2 (11:40→17:44)
[2019-11-27 13:00] VITALS: BP 170/81
[2019-11-27 16:24] VITALS: BP 150/79
[2019-11-27] MEDS: LABETALOL HCL 5 MG/ML 4ML SYRINGE IV PRN (21:33)
[2019-11-27] MEDS: APIXABAN 5 MG TAB PO SCH (21:53)
[2019-11-27] MEDS: ATORVASTATIN 20 MG TAB PO SCH (21:53)
[2019-11-27 22:00] VITALS: BP 173/88
[2019-11-27 23:09] VITALS: BP 173/88
[2019-11-28] MEDS: SODIUM CHLORIDE 0.9% 1,000 ML IV SCH ×2 (00:40→14:43)
[2019-11-28] MEDS: LABETALOL HCL 5 MG/ML 4ML SYRINGE IV PRN ×2 (01:11→08:24)
[2019-11-28] MEDS: HYDROmorphone HCL 2 MG/ML VL IV PRN ×5 (01:36→22:05)
[2019-11-28] MEDS: HYDROcodone-ACET 5/325MG TAB PO PRN ×2 (03:59→15:58)
[2019-11-28 05:25] VITALS: BP 169/77
[2019-11-28 05:55] LABS: Basophils # (auto) 0.1 10 ^3/uL (0-0.2); Basophils % (auto) 0.8 % (0.0-2.0); Eosinophils # (auto) 0.3 10 ^3/uL (0-0.8); Eosinophils % (auto) 4.1 % (0.0-7.0); Hematocrit 33.9 % (36.0-46.0); Hemoglobin 11.2 g/dL (12.2-16.2); Lymphocytes # (auto) 1.4 10 ^3/uL (0.4-5.4); Mean Corpuscular Hemoglobin 27.6 pg (28.0-32.0); Mean Corpuscular Hgb Conc. 33.1 g/dL (32.0-36.0); Mean Corpuscular Volume 83.4 fL (80.0-100.0); Monocytes # (auto) 0.9 10 ^3/uL (0-1.3); Monocytes % (auto) 11.9 % (0.0-12.0); Neutrophils # (auto) 4.7 10 ^3/uL (1.6-8.6); Neutrophils % (auto) 64.2 % (37.0-80.0); Platelet Count (auto) 443 10^3/uL (140-450); Red Blood Cells 4.07 10^6/uL (4.0-5.20); Red Cell Distribution Width 16.9 % (11.8-14.3); White Blood Cell 7.3 10^3/uL (4.4-10.8)
[2019-11-28 06:10] LABS: BUN/Creatinine Ratio 18.8; Calcium 8.8 mg/dL (8.5-10.1); Potassium 3.7 mmol/L (3.5-5.1)
[2019-11-28] MEDS: CLINDAMYCIN 300MG IV 50 ML IV SCH (06:15)
[2019-11-28] MEDS: diphenhdrAMINE HCL 25 MG CAP PO SCH ×4 (06:24→22:52)
[2019-11-28] MEDS: PIPERACILLIN-TAZOB 2.25GM 50 ML IV SCH ×3 (06:27→12:33)
[2019-11-28] MEDS: LISINOPRIL 20 MG TAB PO SCH (07:03)
[2019-11-28] MEDS: Ensure HIGH Protein Chocolate 8oz Bottle PO SCH ×3 (08:24→17:51)
[2019-11-28 09:00] VITALS: BP 176/79
[2019-11-28] MEDS: ASPirin 81 mg TAB PO SCH (09:36)
[2019-11-28] MEDS: CLOPIDOGREL BISULFATE 75 MG TAB PO SCH (09:36)
[2019-11-28] MEDS: FLORASTOR (S. BOULARDII) 250 MG CAP PO SCH (09:37)
[2019-11-28] MEDS: PANTOPRAZOLE 40 MG TAB PO SCH (09:37)
[2019-11-28] MEDS: FUROSEMIDE 40 MG TAB PO SCH (09:37)
[2019-11-28] MEDS: POTASSIUM CHL 10 Meq TABLET PO SCH (09:38)
[2019-11-28] MEDS: amLODIPine BESYLATE 5 MG TAB PO SCH (09:38)
[2019-11-28] MEDS: APIXABAN 5 MG TAB PO SCH ×2 (09:39→22:05)
[2019-11-28 11:38] LABS: INR 1.06 (0.9-1.15); Partial Thromboplastin Time 29.3 sec (23.0-31.2)
[2019-11-28] MEDS ORDERED: levoFLOXacin 500MG 100 ML IV ONE (12:30)
[2019-11-28 13:00] VITALS: BP 167/81
[2019-11-28] MEDS ORDERED: AMPICILLIN INJ 1 GM in SODIUM CHL 0.9% 50 ML IV ONE (14:00)
[2019-11-28 17:00] VITALS: BP 150/150
[2019-11-28] MEDS: AMPICILLIN INJ 1 GM in SODIUM CHL 0.9% 50 ML IV SCH (20:22)
[2019-11-28 22:00] VITALS: BP 159/79
[2019-11-28] MEDS: ATORVASTATIN 20 MG TAB PO SCH (22:05)
[2019-11-28 23:41] VITALS: BP 151/70
[2019-11-29] MEDS: AMPICILLIN INJ 1 GM in SODIUM CHL 0.9% 50 ML IV SCH ×2 (01:54→09:12)
[2019-11-29] MEDS: SODIUM CHLORIDE 0.9% 1,000 ML IV SCH (03:20)
[2019-11-29] MEDS: HYDROmorphone HCL 2 MG/ML VL IV PRN ×3 (03:56→13:46)
[2019-11-29 05:00] VITALS: BP 160/76
[2019-11-29] MEDS: diphenhdrAMINE HCL 25 MG CAP PO SCH ×2 (05:49→13:43)
[2019-11-29] MEDS: LABETALOL HCL 5 MG/ML 4ML SYRINGE IV PRN (05:50)
[2019-11-29] MEDS: Ensure HIGH Protein Chocolate 8oz Bottle PO SCH ×2 (08:41→12:00)
[2019-11-29 09:00] VITALS: BP 168/83
[2019-11-29] MEDS: FLORASTOR (S. BOULARDII) 250 MG CAP PO SCH (09:12)
[2019-11-29] MEDS: CLOPIDOGREL BISULFATE 75 MG TAB PO SCH (09:12)
[2019-11-29] MEDS: amLODIPine BESYLATE 5 MG TAB PO SCH (09:13)
[2019-11-29] MEDS: FUROSEMIDE 40 MG TAB PO SCH (09:13)
[2019-11-29] MEDS: PANTOPRAZOLE 40 MG TAB PO SCH (09:13)
[2019-11-29] MEDS: ASPirin 81 mg TAB PO SCH (09:14)
[2019-11-29] MEDS: POTASSIUM CHL 10 Meq TABLET PO SCH (09:14)
[2019-11-29] MEDS: LISINOPRIL 20 MG TAB PO SCH (09:14)
[2019-11-29] MEDS: APIXABAN 5 MG TAB PO SCH (09:15)
[2019-11-29] MEDS ORDERED: levoFLOXacin 500MG 100 ML IV SCH (10:00)
[2019-11-29] MEDS: HYDROcodone-ACET 5/325MG TAB PO PRN ×2 (10:45→17:31)
[2019-11-29 13:00] VITALS: BP 135/72
[2019-11-29 13:20] VITALS: BP 168/83
[2019-11-29 17:00] VITALS: BP 140/64
[2019-12-04] MEDS ORDERED: APIXABAN 5 MG TAB PO SCH (22:00)
== END 2019-11-29 19:00 | disposition home health service (06) | DRG 602 ==
LOC: ER 10:58 → EDBD 10:58 → TELE 10:59 → TELE-CENTR 16:55 → TELE 11-29 09:27 → TELE-CENTR 11-29 09:28
PROVIDERS: ADMIT Nurse Practitioner Acute Care; ATTEND Family Medicine
DX: L03.115 Cellulitis of right lower limb (principal); N17.0 Acute kidney failure with tubular necrosis; I82.412 Acute embolism and thrombosis of left femoral vein; I13.0 Hypertensive heart and chronic kidney disease with heart failure and stage 1 through stage 4 chronic kidney disease, or unspecified chronic kidney disease; E44.0 Moderate protein-calorie malnutrition; I50.42 Chronic combined systolic (congestive) and diastolic (congestive) heart failure; L03.116 Cellulitis of left lower limb; I25.10 Atherosclerotic heart disease of native coronary artery without angina pectoris; N18.30 Chronic kidney disease, stage 3 unspecified; B95.2 Enterococcus as the cause of diseases classified elsewhere; J44.9 Chronic obstructive pulmonary disease, unspecified; E78.5 Hyperlipidemia, unspecified; F17.210 Nicotine dependence, cigarettes, uncomplicated; Z95.5 Presence of coronary angioplasty implant and graft; Z79.01 Long term (current) use of anticoagulants; Z82.49 Family history of ischemic heart disease and other diseases of the circulatory system; Z83.3 Family history of diabetes mellitus; Z68.39 Body mass index [BMI] 39.0-39.9, adult
CPT/HCPCS: 36415; 71045; 80048; 80053; 82550; 83605; 83735; 83880; 84443; 84484; 85025; 85610; 85730; 87040; 87077; 87081; 87147; 87186; 87205; 93005; 93970; 96361; 96374; 96375; G0378; J0696; J1956; J2405; J2543; J3490